=== PATIENT | male | born 1960 | race African-American/Black ===

== ENCOUNTER 2023-12-05 16:32 | Inpatient (IN) | payer OTHER, MEDICAID ==
[~2023-12-05] VITALS: Ht 188 cm; Wt 97.5 kg
[~2023-12-05 16:32] MED LIST: ASPI-1406 PO; ATOR40TA70 PO; CARV12.545 PO; EMPA25TA PO; FURO20TA4 PO; GLIP10TA10 PO; SACU1TAB7 PO; SPIR25TA6 MT
[2023-12-05 17:31] LABS: BASOPHILS % 0.7 % (0.0-2.0); EOSINOPHILS % 0.5 % (0.0-5.0); HEMATOCRIT. 46.2 % (42.0-52.0); HEMOGLOBIN. 15.2 g/dL (14.0-18.0); MEAN CORPUSCULAR HEMOGLOBIN 28.2 pg (28.0-32.0); MEAN CORPUSCULAR HGB CONC 32.9 g/dL (31.0-37.0); MEAN CORPUSCULAR VOLUME 85.7 fL (80.0-94.0); MONOCYTES % 7.8 % (2.0-8.0); PLATELET 154 x1000/uL (130-400); RED BLOOD CELL COUNT 5.39 mill/uL (4.7-6.1); RED CELL DISTRIBUTION WIDTH 16.9 % (11.6-14.6); WHITE BLOOD COUNT 10.2 x1000/uL (4.5-11.0)
[2023-12-05 17:40] LABS: CARBON DIOXIDE 27 mEq/L (21-32); CHLORIDE 96 mEq/L (98-107); POTASSIUM 4.1 mEq/L (3.5-5.1); SODIUM 131 mEq/L (136-145)
[2023-12-05 17:41] LABS: CALCIUM 9.8 mg/dL (8.7-10.4)
[2023-12-05] MEDS: PIPERACILLIN/TAZO 3.375G/50ML 50 ML IV ONE (17:42)
[2023-12-05] MEDS: SODIUM CHLORIDE 0.9% 1,000 ML IV ONE (17:43)
[2023-12-05 17:45] LABS: INR 1.2; PARTIAL THROMBOPLASTIN TIME 32.2 sec (23.4-31.0); PROTHROMBIN TIME 13.2 sec (9.6-11.0)
[2023-12-05 17:46] LABS: CREATININE 1.9 mg/dL (0.6-1.3); GLUCOSE 53 mg/dL (70-105); UREA NITROGEN BLOOD 48 mg/dL (9-23)
[2023-12-05 17:47] LABS: ALBUMIN 3.9 g/dL (3.2-4.8)
[2023-12-05 17:48] LABS: ALANINE AMINOTRANSFERASE 34 IU/L (10-49); ASPARTATE AMINOTRANSFERASE 38 IU/L (<34); BILIRUBIN DIRECT 0.6 mg/dL (<=3.0)
[2023-12-05 17:49] LABS: TROPONIN I HIGH SENSITIVITY 55 ng/L (3.0-53)
[2023-12-05] MEDS: ENOXAPARIN 100MG/ML SYR SUBCUT NR (18:35)
[2023-12-05 19:31] LABS: CLARITY URINE CLEAR (CLEAR); COLOR URINE YELLOW (YELLOW); GLUCOSE URINE 2+ (NEGATIVE); KETONES URINE NEGATIVE (NEGATIVE); LEUKOCYTE ESTERASE URINE NEGATIVE (NEGATIVE); NITRITE URINE NEGATIVE (NEGATIVE); OCCULT BLOOD URINE NEGATIVE (NEGATIVE); PH URINE 5.5 (4.5-8.0); PROTEIN URINE NEGATIVE (NEGATIVE); SPECIFIC GRAVITY URINE 1.012 (1.005-1.030); UROBILINOGEN URINE 0.2 E.U./dL (0.2-1.0)
[2023-12-05 19:46] LABS: RBC URINE NONE SEEN /hpf (0-2); WBC URINE NONE SEEN /hpf (0-2)
[2023-12-05 19:47] LABS: BACTERIA URINE NONE SEEN; SQUAMOUS EPITHELIAL CELL URINE RARE /lpf (RARE/1+)
[2023-12-05] MEDS: DEXTROSE 50% WATER 50ML SYRINGE IV ONE (20:51)
[2023-12-05] MEDS ORDERED: IPRATROPIUM/ALBUTEROL 0.5-3(2.5)MG/3ML NEB HHN PRN (21:00)
[2023-12-05] MEDS ORDERED: DOCUSATE SODIUM 100MG CAPSULE PO PRN (21:00)
[2023-12-05] MEDS ORDERED: MAGNESIUM/ALUMINUM HYDROXIDE/SIMETHICONE 30ML UDC PO PRN (21:00)
[2023-12-05] MEDS ORDERED: ACETAMINOPHEN 325MG TABLET PO PRN ×2 (21:00)
[2023-12-05] MEDS ORDERED: CLONIDINE 0.1MG TABLET PO PRN (21:00)
[2023-12-05] MEDS ORDERED: ONDANSETRON HCL 4MG/2ML INJ IV PRN (21:00)
[2023-12-05] MEDS ORDERED: GUAIFENESIN 200MG/10ML SUGAR FREE UDC PO PRN (21:00)
[2023-12-05] MEDS ORDERED: DEXTROSE 50% WATER 50ML SYRINGE IV PRN (21:15)
[2023-12-05] MEDS: FAMOTIDINE 20MG/2ML VIAL IV SCH (21:58)
[2023-12-05] MEDS: PIPERACILLIN/TAZO 3.375G/50ML 50 ML IV SCH (21:59)
[2023-12-05 22:45] VITALS: BP 98/66; PULSE 81; RESP 19; TEMP 36.114; TEMP 36.14; O2SAT 99
[2023-12-06] VITALS: BP 99/72; PULSE 83; RESP 19; TEMP 36.22512; O2SAT 98
[2023-12-06] MEDS: FUROSEMIDE 40MG/4ML VIAL IVP NR (00:58)
[2023-12-06 01:29] LABS: TROPONIN I HIGH SENSITIVITY 47 ng/L (3.0-53)
[2023-12-06 01:30] LABS: CREATINE KINASE 422 IU/L (46-171)
[2023-12-06] MEDS: VANCOMYCIN 2,000 MG in DEXT 5% WATER 500 ML IV NR (01:52)
[2023-12-06] MEDS: ENOXAPARIN 100MG/ML SYR SUBCUT SCH (05:54)
[2023-12-06] MEDS ORDERED: IOHEXOL-350 100 ML BOTTLE ONE (07:09)
[2023-12-06] MEDS: BLOOD SUGAR DIAGNOSTIC STRIP TEST SCH (07:40)
[2023-12-06] MEDS: INSULIN LISPRO 100 UNITS/ML SUBCUT SCH (08:10)
[2023-12-06] MEDS ORDERED: LISI20TA31 PO (08:30)
[2023-12-06] MEDS ORDERED: ASPIRIN 81MG EC TABLET PO SCH (09:00)
[2023-12-06 09:24] LABS: CALCIUM 9.3 mg/dL (8.7-10.4)
[2023-12-06 09:26] LABS: BASOPHILS % 0.8 % (0.0-2.0); EOSINOPHILS % 0.6 % (0.0-5.0); HEMATOCRIT. 44.7 % (42.0-52.0); HEMOGLOBIN. 14.2 g/dL (14.0-18.0); LYMPHOCYTES % 13.2 % (20.0-50.0); MEAN CORPUSCULAR HEMOGLOBIN 27.5 pg (28.0-32.0); MEAN CORPUSCULAR HGB CONC 31.8 g/dL (31.0-37.0); MEAN CORPUSCULAR VOLUME 86.3 fL (80.0-94.0); MEAN PLATELET VOLUME 8.8 fl (7.4-10.4); MONOCYTES % 8.6 % (2.0-8.0); NEUTROPHILS % 76.8 % (40.0-76.0); PLATELET 131 x1000/uL (130-400); RED BLOOD CELL COUNT 5.17 mill/uL (4.7-6.1); RED CELL DISTRIBUTION WIDTH 17.4 % (11.6-14.6); WHITE BLOOD COUNT 9.5 x1000/uL (4.5-11.0)
[2023-12-06 09:29] LABS: CREATININE 1.7 mg/dL (0.6-1.3)
[2023-12-06 09:32] LABS: T4 FREE 1.75 ng/dL (0.89-1.76); THYROID STIMULATING HORMONE 1.14 uIU/mL (0.55-4.78)
[2023-12-06] MEDS: ASPIRIN 81MG EC TABLET PO SCH (10:18)
[2023-12-06 12:00] VITALS: BP 93/64; PULSE 83; RESP 16; TEMP 36.16956; O2SAT 97
[2023-12-06 16:00] VITALS: BP 91/63; PULSE 86; RESP 20; TEMP 36.33624; O2SAT 97
[2023-12-06 20:00] VITALS: BP 87/56; PULSE 82; RESP 20; TEMP 36.3918; O2SAT 95
[2023-12-06] MEDS: ATORVASTATIN CALCIUM 40MG TABLET PO SCH (21:28)
[2023-12-07] VITALS: BP 95/72; PULSE 78; RESP 20; TEMP 36.3918; O2SAT 95
[2023-12-07] MEDS: DEXT 5%/0.45% NACL 1000ML 1,000 ML IV NR (00:32)
[2023-12-07 04:00] VITALS: BP 100/65; PULSE 84; RESP 19; TEMP 36.3918; O2SAT 100
[2023-12-07 05:54] LABS: POTASSIUM 3.9 mEq/L (3.5-5.1)
[2023-12-07 05:56] LABS: CALCIUM 8.9 mg/dL (8.7-10.4)
[2023-12-07 05:57] LABS: BASOPHILS % 0.9 % (0.0-2.0); EOSINOPHILS % 0.7 % (0.0-5.0); HEMATOCRIT. 42.1 % (42.0-52.0); HEMOGLOBIN. 13.7 g/dL (14.0-18.0); LYMPHOCYTES % 13.1 % (20.0-50.0); MEAN CORPUSCULAR HEMOGLOBIN 27.6 pg (28.0-32.0); MEAN CORPUSCULAR HGB CONC 32.5 g/dL (31.0-37.0); MEAN CORPUSCULAR VOLUME 84.9 fL (80.0-94.0); MEAN PLATELET VOLUME 9.1 fl (7.4-10.4); MONOCYTES % 9.5 % (2.0-8.0); NEUTROPHILS % 75.8 % (40.0-76.0); PLATELET 127 x1000/uL (130-400); RED BLOOD CELL COUNT 4.96 mill/uL (4.7-6.1); RED CELL DISTRIBUTION WIDTH 16.9 % (11.6-14.6); WHITE BLOOD COUNT 8.3 x1000/uL (4.5-11.0)
[2023-12-07 06:00] LABS: CREATININE 1.5 mg/dL (0.6-1.3)
[2023-12-07] MEDS: VANCOMYCIN 1G PREMIX 200 ML IV SCH (08:20)
[2023-12-07 08:24] VITALS: BP 98/71; PULSE 83; RESP 19; TEMP 36.22512; O2SAT 94
[2023-12-07 12:03] VITALS: BP 93/62; PULSE 82; RESP 18; TEMP 36.33624; O2SAT 98
[2023-12-07 13:40] VITALS: BP 93/62; PULSE 82; TEMP 97.4; O2SAT 98
[2023-12-07 16:44] VITALS: BP 91/64; PULSE 87; RESP 19; TEMP 36.33624; O2SAT 98
== END 2023-12-07 18:26 | disposition short-term general hospital (02) | DRG 871 ==
LOC: ER 16:32 → EDBEDREQ 20:02 → 7WST 23:07
PROVIDERS: ADMIT Hospitalist; ATTEND Hospitalist
DX: A41.9 Sepsis, unspecified organism (principal); G92.8 Other toxic encephalopathy; I21.4 Non-ST elevation (NSTEMI) myocardial infarction; I50.23 Acute on chronic systolic (congestive) heart failure; I26.99 Other pulmonary embolism without acute cor pulmonale; N17.9 Acute kidney failure, unspecified; I31.39 Other pericardial effusion (noninflammatory); E11.52 Type 2 diabetes mellitus with diabetic peripheral angiopathy with gangrene; I82.412 Acute embolism and thrombosis of left femoral vein; I13.0 Hypertensive heart and chronic kidney disease with heart failure and stage 1 through stage 4 chronic kidney disease, or unspecified chronic kidney disease; E87.1 Hypo-osmolality and hyponatremia; D68.9 Coagulation defect, unspecified; Z66 Do not resuscitate; E11.649 Type 2 diabetes mellitus with hypoglycemia without coma; N18.9 Chronic kidney disease, unspecified; K74.60 Unspecified cirrhosis of liver; I49.3 Ventricular premature depolarization; I69.320 Aphasia following cerebral infarction; Z86.79 Personal history of other diseases of the circulatory system; Z74.01 Bed confinement status; E11.22 Type 2 diabetes mellitus with diabetic chronic kidney disease; Z79.4 Long term (current) use of insulin; Z79.84 Long term (current) use of oral hypoglycemic drugs
CPT/HCPCS: 36415; 71045; 71275; 73630; 76770; 80048; 80061; 80076; 81003; 82550; 82962; 83036; 83605; 84145; 84439; 84443; 84484; 85025; 93005; 93970; 99291; J1650; J1940; J2543; J3370; J3490; J7030; J7060; Q9967